=== PATIENT | female | born 1955 | race Caucasian/White ===

== ENCOUNTER → 2016-07-11 | Outpatient (CLI) | payer MEDICARE | LOC: HEART CORB 08:35 | DX: R06.02 Shortness of breath (principal); R07.2 Precordial pain | CPT/HCPCS: 78452; 93017; A9502; J2785 ==

== ENCOUNTER → 2021-10-09 | Outpatient (CLI) | payer MEDICARE, OTHER | LOC: HEART CORB 09:30 | DX: R60.0 Localized edema (principal); R06.02 Shortness of breath; I10 Essential (primary) hypertension | CPT/HCPCS: 93306 ==